=== PATIENT | female | born 1965 | race Caucasian/White ===

== ENCOUNTER 2017-01-19 09:28 | Emergency (ER) | payer MEDICAID, OTHER ==
[2017-01-19 09:28] VITALS: BMI 28.3
[2017-01-19] MEDS ORDERED: Sodium Chloride 0.9% 1,000 ML IV ONE (10:08)
[2017-01-19] MEDS ORDERED: Sodium Chloride 0.9% 1,000 ML ONE (10:22)
--- NOTE | 2017-01-19 10:22 | C.PDOC ---
History Of Present Illness 51 y/o female presents to the ED with complaints of dizziness and nausea beginning this morning. Patient states when she got up from bed she felt dizzy and felt everything was spinning. Patient denies having similar symptoms before and denies [facility], vomiting, fever, chills or any other complaints at this time. Time Seen by Provider: 01/19/17 09:42 Chief Complaint (Nursing): Dizziness/Lightheaded History Per: Patient History/Exam Limitations: no limitations Onset/Duration Of Symptoms: Hrs Current Symptoms Are (Timing): Still Present Activity At Onset Of Symptoms: Standing Past Medical History Reviewed: Historical Data, Nursing Documentation, Vital Signs Vital Signs: Last Vital Signs Temp 97.8 F 01/19/17 11:33 Pulse 66 01/19/17 11:33 Resp 20 01/19/17 11:33 BP 116/71 01/19/17 11:33 Pulse Ox 99 01/19/17 11:49 - Medical History PMH: Hypothyroidism, Kidney Stones, Chronic Kidney Disease Surgical History: Cholecystectomy, Endoscopy - [facility] Procedures LAPAROSCOP LYSIS-PERITONEAL ADHES (04/30/13) LAPAROSCOPIC CHOLECYSTECTOMY (04/30/13) Family History: States: Unknown Family Hx - Social History Hx Tobacco Use: No Hx Alcohol Use: Yes Hx Substance Use: No - Immunization History Hx Tetanus Toxoid Vaccination: No Hx Influenza Vaccination: Yes (2013) Hx Pneumococcal Vaccination: Yes Review Of Systems Except As Marked, All Systems Reviewed And Found Negative. Constitutional: Negative for: Fever, Chills Gastrointestinal: Positive for: Nausea. Negative for: Vomiting Neurological: Positive for: Dizziness. Negative for: Headache Physical Exam - Physical Exam Appears: Non-toxic, No Acute Distress Skin: Normal Color, Warm Head: Atraumatic, Normacephalic Eye(s): bilateral: Normal Inspection Oral Mucosa: Moist Neck: Normal ROM Cardiovascular: Rhythm Regular, No Murmur Respiratory: Normal Breath Sounds, No Rales, No Rhonchi, No Wheezing Gastrointestinal/Abdominal: Soft, No Tenderness, No Guarding, No Rebound Extremity: Normal ROM, Capillary Refill (<2 seconds) Neurological/Psych: Oriented x3, Normal Speech ED Course And Treatment - Laboratory Results Result Diagrams: 01/19/17 10:22 01/19/17 10:22 Lab Interpretation: Normal ECG: Interpreted By Me ECG Rhythm: Sinus Rhythm Rate From EC O2 Sat by Pulse Oximetry: 99 (RA) Pulse Ox Interpretation: Normal Progress Note: Treated with IVF NSS, reglan and meclizine. On re-evaluation in no distress, lungs clear, ambulating with steady gait, neuro intact Reassessment Condition: Improved Medical Decision Making Medical Decision Making: Patient at ED is given fluids, Meclizine and Metoclopramide Disposition - Disposition Referrals: [facility] [Outside] [facility] [Outside] Disposition: HOME/ ROUTINE Disposition Time: 13:00 Condition: STABLE Additional Instructions: Return to ED if any increase symptoms Prescriptions: Meclizine [Meclizine*] 25 mg PO Q12 PRN #10 tab PRN Reason: Dizziness Instructions: Vertigo (ED) - POA Present On Arrival: None - Clinical Impression Clinical Impression: Dizziness - PA / SERVICING MANAGER / Resident Statement MD/DO has reviewed & agrees with the documentation as recorded. - Scribe Statement The provider has reviewed the documentation as recorded by the Donnaibfiorella Urena All medical record entries made by the Donnaibfiorella were at my direction and personally dictated by me. I have reviewed the chart and agree that the record accurately reflects my personal performance of the history, physical exam, medical decision making, and the department course for this patient. I have also personally directed, reviewed, and agree with the discharge instructions and disposition.
[2017-01-19 10:27] LABS: BASO % 0.4 % (0.0-2.0); EOS # 0.1 K/uL (0.0-0.7); EOS % 2.6 % (0.0-4.0); HEMOGLOBIN 12.7 g/dL (11.0-16.0); LYMPH # 1.3 K/uL (1.0-4.3); LYMPH % 25.4 % (20.0-40.0); MEAN CELL VOLUME 90.1 fL (81.0-99.0); MEAN CORPUSCULAR HEMOGLOBIN 31.2 pg (27.0-31.0); MEAN CORPUSCULAR HGB CONC 34.7 g/dL (33.0-37.0); MEAN PLATELET VOLUME 7.7 fL (7.2-11.7); MONO # 0.4 K/uL (0.0-0.8); MONO % 8.6 % (0.0-10.0); NEUT # 3.2 K/uL (1.8-7.0); NRBC % 0.1 % (0.0-2.0); RBC 4.07 Mil/uL (3.80-5.20); RED CELL DISTRIBUTION WIDTH 12.3 % (11.5-14.5); WHITE BLOOD COUNT 5.2 K/uL (4.8-10.8)
[2017-01-19 10:34] LABS: HCG,QUALITATIVE URINE NEGATIVE (NEGATIVE)
[2017-01-19 10:38] LABS: SQUAMOUS EPITHIAL 1 /hpf (0-5); URINE BILIRUBIN NEGATIVE (NEGATIVE); URINE BLOOD NEGATIVE (NEGATIVE); URINE CLARITY Clear (Clear); URINE COLOR Yellow (YELLOW); URINE GLUCOSE (UA) NORMAL (Normal); URINE LEUKOCYTE ESTERASE NEG Leu/uL (Negative); URINE NITRATE NEGATIVE (NEGATIVE); URINE PROTEIN NEGATIVE (NEGATIVE); URINE UROBILINOGEN NORMAL mg/dL (0.2-1.0)
[2017-01-19 10:39] LABS: ALBUMIN 3.9 g/dL (3.5-5.0)
[2017-01-19 10:42] LABS: ALB/GLOB RATIO 1.2 (1.0-2.1); AST/SGOT 43 U/L (14-36); GFR AFRICAN-AMERICAN > 60; GFR NON-AFRICAN AMERICAN > 60
[2017-01-19 10:43] LABS: ALT/SGPT 95 U/L (9-52); BLOOD UREA NITROGEN 11 mg/dL (7-17); CALCIUM 8.2 mg/dl (8.6-10.4)
[2017-01-19 11:34] VITALS: BP 116/71; PULSE 66; RESP 20; TEMP 97.8
[2017-01-19 11:49] VITALS: O2SAT 99
--- NOTE | 2017-01-20 07:47 | CARD ---
APPROVED REPORT EKG Measurement Heart [id number] <Conclusion> Normal sinus rhythm Normal ECG
== END 2017-01-19 11:57 | disposition home or self-care (01) ==
LOC: C.ER 09:28
DX: R42 Dizziness and giddiness (principal)
CPT/HCPCS: 80053; 81001; 84703; 85025; 93005; 96365; 99285; J2765; J7040

== ENCOUNTER 2018-01-19 12:49 | Emergency (ER) | payer MEDICAID ==
[2018-01-19 12:49] VITALS: BMI 28.3
[2018-01-19 13:03] VITALS: RESP 18; O2SAT 98
[2018-01-19 15:03] LABS: BASO % 0.8 % (0.0-2.0); EOS # 0.2 K/uL (0.0-0.7); EOS % 4.2 % (0.0-4.0); LYMPH # 1.7 K/uL (1.0-4.3); LYMPH % 33.7 % (20.0-40.0); MEAN CELL VOLUME 91.7 fL (81.0-99.0); MEAN CORPUSCULAR HEMOGLOBIN 32.4 pg (27.0-31.0); MEAN CORPUSCULAR HGB CONC 35.3 g/dL (33.0-37.0); MEAN PLATELET VOLUME 8.4 fL (7.2-11.7); MONO # 0.4 K/uL (0.0-0.8); NEUT # 2.8 K/uL (1.8-7.0); NEUT % 54.3 % (50.0-75.0); RBC 4.02 Mil/uL (3.80-5.20); RED CELL DISTRIBUTION WIDTH 12.4 % (11.5-14.5); WHITE BLOOD COUNT 5.2 K/uL (4.8-10.8)
--- NOTE | 2018-01-19 15:10 | C.PDOC ---
History Of Present Illness 52 year old female presents to the ED for evaluation of left shoulder pain that has been intermittent for two days. Patient states her pain is worse with movement and palpation of the area. She took 600mg of Ibuprofen prior to arrival and reports an improvement in her pain. Patient denies fever, chills, chest pain, cough, recent injury or fall, and extremity numbness/weakness. Time Seen by Provider: 01/19/18 13:18 Chief Complaint (Nursing): Upper Extremity Problem/Injury History Per: Patient History/Exam Limitations: no limitations Onset/Duration Of Symptoms: Days (2), Intermittent Episodes Current Symptoms Are (Timing): Better Quality: "Pain" Exacerbating Factor(s): Movement, Other (palpation) Additional History Per: Patient Past Medical History Reviewed: Historical Data, Nursing Documentation, Vital Signs Vital Signs: Last Vital Signs Temp 98 F 01/19/18 16:03 Pulse 78 01/19/18 16:03 Resp 18 01/19/18 16:03 BP 136/72 01/19/18 16:03 Pulse Ox 98 01/19/18 16:03 - Medical History PMH: Hypercholesterolemia, Hypothyroidism, Kidney Stones, Chronic Kidney Disease Surgical History: Cholecystectomy, Endoscopy - [facility] Procedures LAPAROSCOP LYSIS-PERITONEAL ADHES (04/30/13) LAPAROSCOPIC CHOLECYSTECTOMY (04/30/13) Family History: States: Unknown Family Hx - Social History Hx Tobacco Use: No Hx Alcohol Use: Yes Hx Substance Use: No - Immunization History Hx Tetanus Toxoid Vaccination: No Hx Influenza Vaccination: Yes (2013) Hx Pneumococcal Vaccination: Yes Review Of Systems Constitutional: Negative for: Fever, Chills Cardiovascular: Negative for: Chest Pain Respiratory: Negative for: Cough Musculoskeletal: Positive for: Shoulder Pain (left) Neurological: Negative for: Weakness, Numbness Physical Exam - Physical Exam Appears: Non-toxic, No Acute Distress Skin: Normal Color, Warm, Dry Head: Atraumatic, Normacephalic Eye(s): bilateral: Normal Inspection Oral Mucosa: Moist Neck: Supple Chest: Symmetrical, No Deformity, No Tenderness Cardiovascular: Rhythm Regular, No Murmur Respiratory: Normal Breath Sounds, No Rales, No Rhonchi, No Wheezing Gastrointestinal/Abdominal: Soft, No Tenderness, No Guarding, No Rebound Extremity: Normal ROM, Tenderness (point, to anterior and lateral aspects of left shoulder ), Capillary Refill (less than 2 seconds ), No Deformity, No Swelling Pulses: Left Radial: Normal, Right Radial: Normal Neurological/Psych: Oriented x3, Normal Speech, Normal Cognition, Normal Sensation Gait: Steady ED Course And Treatment - Laboratory Results Result Diagrams: 01/19/18 14:58 01/19/18 14:58 ECG: Interpreted By Me, Viewed By Me ECG Rhythm: Sinus Rhythm Rate From EC O2 Sat by Pulse Oximetry: 98 (on RA) Pulse Ox Interpretation: Normal - Other Rad CXR X-Ray: Interpreted by Me, Viewed By Me, Read By Radiologist Interpretation: Chest x-ray single frontal view. History: Chest pain. Comparison: 02/03/2011. Findings: Mild venous congestion. Right hilar prominence. Biapical pleural thickening. Tortuous aorta. Calcification at the aortic knob. Degenerative changes in the spine. Impression: Mild venous congestion. Right hilar prominence. Biapical pleural thickening. Tortuous aorta. Medical Decision Making Medical Decision Making: Impression: 52 year old female with left shoulder pain Plan: * bloodwork * CXR * EKG * Flexeril PO * reassess and disposition Progress: Bloodwork, CXR, EKG ordered and reviewed. Flexeril PO administered. On re-examination, patient is resting comfortably, showing no signs of distress and reports an improvement in her symptoms. Patient is stable for discharge and is advised to follow up with her PMD within 1-2 days for further evaluation and/ or return to the ED if symptoms persist or worsen. Disposition - Disposition Referrals: Luiz Isaac MD [Staff Provider] - Disposition: HOME/ ROUTINE Disposition Time: 15:25 Condition: IMPROVED Additional Instructions: KRYSTEN MENDOZA, thank you for letting us take care of you today. Your provider was Nemesio Alfonso DO and you were treated for LT SHOULDER PAIN. The emergency medical care you received today was directed at your acute symptoms. If you were prescribed any medication, please fill it and take as directed. It may take several days for your symptoms to resolve. Return to the Emergency Department if your symptoms worsen, do not improve, or if you have any other problems. Please contact your doctor or call one of the physicians/clinics you have been referred to that are listed on the Patient Visit Information form that is included in your discharge packet. Bring any paperwork you were given at discharge with you along with any medications you are taking to your follow up visit. Our treatment cannot replace ongoing medical care by a primary care provider outside of the emergency department. Thank you for allowing the [facility] team to be part of your care today. Follow up with your primary care doctor in 2-3 days for re-evaluation and further management. Prescriptions: Cyclobenzaprine [Cyclobenzaprine HCl] 10 mg PO Q8 PRN #20 tab PRN Reason: Muscle Spasm Instructions: Muscle and Bone Pain (DC) Forms: Doctor Fun (German) - Clinical Impression Clinical Impression: Shoulder sprain - Scribe Statement The provider has reviewed the documentation as recorded by the Scribe (Karlee Velasquez) Provider Attestation: All medical record entries made by the Scribe were at my direction and personally dictated by me. I have reviewed the chart and agree that the record accurately reflects my personal performance of the history, physical exam, medical decision making, and the department course for this patient. I have also personally directed, reviewed, and agree with the discharge instructions and disposition.
[2018-01-19 15:14] LABS: ALB/GLOB RATIO 1.3 (1.0-2.1); ALBUMIN 4.4 g/dL (3.5-5.0); ALT/SGPT 62 U/L (9-52); AST/SGOT 35 U/L (14-36); BLOOD UREA NITROGEN 11 mg/dL (7-17); CALCIUM 9.2 mg/dl (8.6-10.4); GFR AFRICAN-AMERICAN > 60; GFR NON-AFRICAN AMERICAN > 60
--- NOTE | 2018-01-19 15:32 | RAD ---
Chest x-ray single frontal view History: Chest pain. Comparison: 02/03/2011 Findings: Mild venous congestion. Right hilar prominence. Biapical pleural thickening. Tortuous aorta. Calcification at the aortic knob. Degenerative changes in the spine. Impression: Mild venous congestion. Right hilar prominence. Biapical pleural thickening. Tortuous aorta.
[2018-01-19 16:04] VITALS: BP 136/72; PULSE 78; TEMP 98
--- NOTE | 2018-01-20 17:16 | CARD ---
APPROVED REPORT EKG Measurement Heart [id number] <Conclusion> Normal sinus rhythm Normal ECG
== END 2018-01-19 16:04 | disposition home or self-care (01) ==
LOC: C.ER 12:49
DX: S43.402A Unspecified sprain of left shoulder joint, initial encounter (principal); X58.XXXA Exposure to other specified factors, initial encounter; E03.9 Hypothyroidism, unspecified; E78.00 Pure hypercholesterolemia, unspecified; N18.9 Chronic kidney disease, unspecified

== ENCOUNTER 2018-08-17 08:57 | Emergency (ER) | payer MEDICAID, OTHER ==
[2018-08-17 08:57] VITALS: BMI 28.3
[2018-08-17 09:39] LABS: SQUAMOUS EPITHIAL 2 /hpf (0-5); URINE BILIRUBIN NEGATIVE (NEGATIVE); URINE BLOOD NEGATIVE (NEGATIVE); URINE CLARITY Clear (Clear); URINE COLOR Yellow (YELLOW); URINE GLUCOSE (UA) NORMAL (Normal); URINE LEUKOCYTE ESTERASE NEG Leu/uL (Negative); URINE PROTEIN NEGATIVE (NEGATIVE); URINE UROBILINOGEN NORMAL mg/dL (0.2-1.0)
--- NOTE | 2018-08-17 12:01 | US ---
Pelvic ultrasound HISTORY: Left-sided pelvic pain. Comparison: None available. Technique: Real-time sonography was performed through the pelvis utilizing transabdominal and transvaginal techniques. Findings: Uterus: 8.4 x 5.1 x 7.4 centimeters. Heterogeneous echotexture. Retroverted. Echogenic calcifications noted within the uterus measuring up to 5 and 7 millimeters. Heterogeneous lesions seen within the uterus suggestive for fibroid lesions: Right aspect measuring 5.7 x 5.8 x 5.1 centimeters suggestive for a fibroid lesion. Left aspect measuring 3.3 x 3.3 x 3.1 centimeters suggestive for a fibroid lesion. Endometrium measures up to 4 millimeters demonstrating a mild nodularity. Fluid noted within the endometrium measuring up to 2 millimeters. No free fluid in the pelvic cul-de-sac. Right ovary: Not well visualized. Left ovary: Not well visualized. Impression: 1. Limited study as the bilateral ovaries were not well visualized. 2. Prominent fibroid lesions noted within the uterus measuring up to 5.7 and 3.3 centimeters respectively. 3. Echogenic calcifications noted within the uterus measuring up to 5 and 7 millimeters. Clinical correlation. 4. Fluid distension of the endometrium measuring up to 2 millimeters. Clinical correlation.
--- NOTE | 2018-08-17 13:03 | C.PDOC ---
Time Seen by Provider: 08/17/18 09:43 Chief Complaint (Nursing): Female Genitourinary History Per: Patient, Family Onset/Duration Of Symptoms: Days (about 1-2 weeks) Current Symptoms Are (Timing): Still Present Severity: Mild Location Of Pain/Discomfort: LLQ Quality Of Discomfort: Sharp, "Pain" Associated Symptoms: Urinary Symptoms Exacerbating Factors: None Alleviating Factors: None Additional History Per: Prior Records Abnormal Vaginal Bleeding: No Past Medical History Reviewed: Historical Data, Nursing Documentation, Vital Signs Vital Signs: Last Vital Signs Temp 97.9 F 08/17/18 11:40 Pulse 73 08/17/18 11:40 Resp 16 08/17/18 11:40 BP 152/80 H 08/17/18 11:40 Pulse Ox 99 08/17/18 11:40 - Medical History PMH: Hypercholesterolemia, Hypothyroidism, Kidney Stones Other PMH: Fibroids Surgical History: Cholecystectomy, Endoscopy, - [facility] Procedures LAPAROSCOP LYSIS-PERITONEAL ADHES (04/30/13) LAPAROSCOPIC CHOLECYSTECTOMY (04/30/13) Family History: States: Unknown Family Hx - Social History Hx Tobacco Use: No Hx Alcohol Use: Yes Hx Substance Use: No - Immunization History Hx Tetanus Toxoid Vaccination: No Hx Influenza Vaccination: Yes Hx Pneumococcal Vaccination: No Review Of Systems Except As Marked, All Systems Reviewed And Found Negative. Constitutional: Negative for: Fever, Weakness Cardiovascular: Negative for: Chest Pain Respiratory: Negative for: Shortness of Breath Gastrointestinal: Negative for: Nausea, Vomiting, Diarrhea, Constipation, Melena, Hematochezia, Hematemesis Genitourinary: Positive for: Dysuria (resolved after course of Macrobid), Pelvic Pain (left). Negative for: Hematuria, Vaginal Discharge, Vaginal Bleeding Musculoskeletal: Negative for: Neck Pain, Back Pain Skin: Negative for: Rash Neurological: Negative for: Weakness, Numbness Physical Exam - Physical Exam Appears: Non-toxic, No Acute Distress Skin: Normal Color, Warm, Dry, No Rash Head: Atraumatic, Normacephalic Eye(s): bilateral: PERRL, EOMI Neck: Normal ROM, Supple Cardiovascular: Rhythm Regular Respiratory: Normal Breath Sounds, No Accessory Muscle Use Gastrointestinal/Abdominal: Soft, No Distention, No Guarding, No Rebound Back: No CVA Tenderness Pelvic: No Vaginal Bleeding, No Vaginal Discharge, No Cervical Motion Tenderness, Adnexal Tenderness (left) Extremity: Normal ROM Neurological/Psych: Oriented x3, Normal Motor, Normal Sensation ED Course And Treatment - Laboratory Results Lab Results: Urine Color Yellow (YELLOW) 08/17/18 09:23 Urine Clarity Clear (Clear) 08/17/18 09:23 Urine pH 6.0 (5.0-8.0) 08/17/18 09:23 Ur Specific Mallard 1.016 (1.003-1.030) 08/17/18 09:23 Urine Protein Negative mg/dL (NEGATIVE) 08/17/18 09:23 Urine Glucose (UA) Normal mg/dL (Normal) 08/17/18 09:23 Urine Ketones Negative mg/dL (NEGATIVE) 08/17/18 09:23 Urine Blood Negative (NEGATIVE) 08/17/18 09:23 Urine Nitrate Negative (NEGATIVE) 08/17/18 09:23 Urine Bilirubin Negative (NEGATIVE) 08/17/18 09:23 Urine Urobilinogen Normal mg/dL (0.2-1.0) 08/17/18 09:23 Ur Leukocyte Esterase Neg Sergey/uL (Negative) 08/17/18 09:23 Urine WBC (Auto) 1 /hpf (0-5) 08/17/18 09:23 Urine RBC (Auto) 1 /hpf (0-3) 08/17/18 09:23 Ur Squamous Epith Cells 2 /hpf (0-5) 08/17/18 09:23 Interpretation Of Abnormal: U/A wnl. Urine culture and GC/Chlam. swab sent. O2 Sat by Pulse Oximetry: 99 Pulse Ox Interpretation: Normal - CT Scan/US Pelvic US Other Rad Studies (CT/US): Read By Radiologist, Radiology Report Reviewed CT/US Interpretation: Impression: 1. Limited study as the bilateral ovaries were not well visualized. 2. Prominent fibroid lesions noted within the uterus measuring up to 5.7 and 3.3 centimeters respectively. 3. Echogenic calcifications noted within the uterus measuring up to 5 and 7 millimeters. Clinical correlation. 4. Fluid distension of the endometrium measuring up to 2 millimeters. Clinical correlation. Disposition Counseled Patient/Family Regarding: Studies Performed, Diagnosis, Need For Followup, Rx Given - Disposition Disposition: HOME/ ROUTINE Disposition Time: 13:04 Condition: STABLE Additional Instructions: Follow up with your Grinding And Spraying Supervisor for further evaluation and treatment. Return to the ER if you develop fever, vomiting, worsening of symptoms or if you have any other concerns. Prescriptions: Naproxen 375 mg PO BID PRN #20 tablet PRN Reason: Pain, Moderate (4-7) Instructions: Uterine Fibroids (DC) Forms: [employer] (Greek) Print Language: BELARUSIAN - Clinical Impression Clinical Impression: Pelvic pain, Fibroids
[2018-08-17 13:21] VITALS: BP 118/78; PULSE 69; RESP 18; TEMP 98; O2SAT 97
== END 2018-08-17 13:11 | disposition home or self-care (01) ==
LOC: C.ER 08:57
DX: D25.9 Leiomyoma of uterus, unspecified (principal); R10.2 Pelvic and perineal pain